=== PATIENT | female | born 1980 | race Caucasian/White ===

== ENCOUNTER → 2017-06-22 | Outpatient (CLI) | payer OTHER ==
[~2017-06-22] MED LIST: GING250C3 PO; PREN-127 PO
[2017-06-22 10:01] LABS: PLATELET COUNT, AUTOMATED 263 K/uL (150-450)
== END ==
LOC: LAB 09:33
PROVIDERS: ATTEND Obstetrics & Gynecology
DX: Z34.91 Encounter for supervision of normal pregnancy, unspecified, first trimester (principal)
CPT/HCPCS: 36415; 85025; 86592; 86703; 86762; 86850; 86900; 86901; 87088; 87340

== ENCOUNTER → 2017-06-26 | Outpatient (CLI) | payer OTHER | LOC: LAB 15:52 | PROVIDERS: ATTEND Obstetrics & Gynecology | DX: Z34.91 Encounter for supervision of normal pregnancy, unspecified, first trimester (principal) | CPT/HCPCS: 87491; 87591 ==

== ENCOUNTER → 2017-07-23 | Outpatient (CLI) | payer OTHER ==
[~2017-07-23] MED LIST changes: +WHEA360P
== END ==
LOC: LAB 17:05
PROVIDERS: ATTEND Obstetrics & Gynecology
DX: Z02.9 Encounter for administrative examinations, unspecified (principal)

== ENCOUNTER → 2017-08-31 | Outpatient (CLI) | payer OTHER ==
--- NOTE | 2017-08-31 14:26 | RADIOLOGY IMAGING REPORT ---
FACILITY: [facility] PATIENT NAME: Sydnie Robert : 1980 MR: [id number] V: [id number] EXAM DATE: ORDERING PHYSICIAN: ENE MCKEON TECHNOLOGIST: Location: [facility] - [place], [place] Patient: Sydnie Robert : 1980 Visit/Account:[id number] Date of Sevice: 08/31/2017 ADDENDUM #1 The patient returned for additional images of the profile since this could not be obtained at t he time of the original examination of August 31, 2017. Images of the profile appeared within no rmal limits Report Dictated By: Apple Martell MD at 09/03/2017 9:29 AM Report E-Signed By: Apple Martell MD at 09/03/2017 9:31 AM ORIGINAL REPORT OB ANATOMICAL SURVEY HISTORY: Supervision, high risk , second trimester, leiomyoma COMPARISON: None. TECHNIQUE: Transabdominal imaging was performed for assessment of the fetus and maternal pelvic s tructures. Transvaginal imaging was not performed. FINDINGS: Intrauterine gestations: One. presentation: Variable. heart rate: 146 bpm. Amniotic fluid volume: Normal; MARA 18.8 cm; MVP 5.88 cm. Placenta: Posterior. Uterus: There is a 3.4 x 2.9 x 2.3 cm posterior mid uterine fibroid. There is a 5.2 x 3.8 x 5.5 cm r ight-sided uterine fibroid. There is a 4.8 x 5.7 x 4.5 cm anterior right-sided uterine fibroid. Maternal adnexa/ovaries: Grossly unremarkable, ovaries not visualized. Cervix: Grossly long and closed. Gestational Parameters: BPD: 4.44 cm, 16 percentile HC: 16.6 cm, 58th percentile AC: 14 cm, 59th percentile FL: 2.98 cm, 50th percentile Average ultrasound age (AUA): 19 weeks/ three days Estimated age based on LMP: 19 weeks/ zero days, 64th percentile Estimated weight (EFW): 285 grams +/- 42 grams Anatomic Survey: Intracranial structures, 4-chamber heart, stomach, kidneys, urinary bladder, spine, 3-vessel cord and cord insertion are unremarkable. Two upper and two lower extremities visualized. IMPRESSION: Three uterine fibroids were demonstrated as detailed above Single viable fetus in variable presentation with an estimated gestational age by measurements of 19 weeks and three days. Estimated weight 285 g +/- 42 g Report Dictated By: Apple Martell MD at 08/31/2017 2:15 PM Report E-Signed By: Apple Martell MD at 08/31/2017 2:22 PM ELIELN:AMICIVN
== END ==
LOC: RAD 08:52
PROVIDERS: ATTEND Obstetrics & Gynecology
DX: Z02.9 Encounter for administrative examinations, unspecified (principal)
CPT/HCPCS: 76811

== ENCOUNTER → 2017-09-03 | Outpatient (CLI) | payer OTHER | LOC: RAD 08:16 | PROVIDERS: ATTEND Obstetrics & Gynecology | DX: Z02.9 Encounter for administrative examinations, unspecified (principal) ==

== ENCOUNTER → 2017-11-06 | Outpatient (CLI) | payer OTHER ==
[~2017-11-06] MED LIST changes: +BLOO1KIT65 MC; +DIPH0.5D12 IM; +FLUC150T40 PO; +MOM PO
[2017-11-06 11:23] LABS: PLATELET COUNT, AUTOMATED 247 K/uL (150-450)
== END ==
LOC: LAB 09:58
PROVIDERS: ATTEND Obstetrics & Gynecology
DX: O09.90 Supervision of high risk pregnancy, unspecified, unspecified trimester (principal); O09.519 Supervision of elderly primigravida, unspecified trimester
CPT/HCPCS: 36415; 82950; 85025

== ENCOUNTER → 2017-11-09 | Outpatient (CLI) | payer OTHER | LOC: LAB 08:00 | PROVIDERS: ATTEND Obstetrics & Gynecology | DX: O09.90 Supervision of high risk pregnancy, unspecified, unspecified trimester (principal); O99.810 Abnormal glucose complicating pregnancy | CPT/HCPCS: 36415; 82951; 82952 ==

== ENCOUNTER → 2017-11-11 | Outpatient (CLI) | payer OTHER ==
[~2017-11-11] VITALS: Ht 172.7 cm; Wt 67.6 kg
--- NOTE | 2017-11-11 11:47 | Medical Nutrition Therapy ---
Nutrition Anthropometrics Height (Inches): 68 (stated) Weight (Pounds): 149 (29th wk PG, 128# pre preg) Alex Nutrition Score: Alex Nutrition Risk Score: Dietary Referral Nutrition Risk Factors: Nutrition Risk Comment: Nutrition/Food History Breakfast: 4 pancake with extra egg, yogurt, fruit, plum preserves Lunch: 1 sl fitness bread, turkey, cheese, spinach salad, oil/vinegar Dinner: chickenbreast , spinach salad Snacks: appple Nutritional Education Nutrition Education Topic: Diabetic Nutrition (gestational) Learning Readiness: Eager, Interested Teaching Methods: Handout, Demonstration Response to Teaching: Verbalize understanding, Reinforcement needed Teaching Recipient: Patient Nutrition Counseling: Pt at 29 wks PG [presented with gestational DM DX. Pt states has been checking BG and has reported 2 incidences of BG 64, one after talking walk last night and again before brft this morning. Reported this to PCP's nurse after session. Reviewed hypogrlycemia symptoms. Pt states did not feel like she had jose symptoms of hypoglycemia. Reviewed rule of 15 for hypoglycemia. Encouraged pt to take 15gm snack with protein prior to physical activity. Reviewed glycemic response and high CHO foods. Provided meal plan of 30gm CHO brft, 45-60gm lunch supper with 15gm snacks tid with protein. Informed pt to call PCP if any BG above 200 or below 70. Pt will f/u next Thu at 10:00 to review food intake and BG readings. Nutrition Monitoring & Eval RD Patient Assessment Time: [address] Assessment Type: RD Education Nutritional Comment: Provided 60 minute diabetes education focusing on nutrition, glucometer use, hypoglycemia. Copies To Copies to: ENE MCKEON MD ; SHERLYN MORA Nov 11, 2017 11:47
== END ==
LOC: DIET 10:07
PROVIDERS: ATTEND Obstetrics & Gynecology
DX: O24.410 Gestational diabetes mellitus in pregnancy, diet controlled (principal)
CPT/HCPCS: G0108 ×2

== ENCOUNTER → 2017-12-03 | Outpatient (CLI) | payer OTHER ==
--- NOTE | 2017-12-03 14:07 | RADIOLOGY IMAGING REPORT ---
FACILITY: [facility] PATIENT NAME: Sydnie Robert : 1980 MR: [id number] V: [id number] EXAM DATE: ORDERING PHYSICIAN: ENE MCKEON TECHNOLOGIST: Location: [facility] - [place] Patient: Sydnie Robert : 1980 Visit/Account:[id number] Date of Sevice: 12/03/2017 [facility] OB LIMITED HISTORY: Growth, history of leiomyoma COMPARISON: OB ultrasound April 02, 2017 TECHNIQUE: Transabdominal imaging was performed for assessment of the fetus and maternal pelvic s tructures. Transvaginal imaging was not performed. FINDINGS: Intrauterine gestations: One. presentation: Cephalic. heart rate: 158 bpm. Amniotic fluid volume: ; MARA 23.6 cm; MVP 8.03 cm. Placenta: Posterior. Uterus: Two of the previously described three uterine fibroids were measured.. One of the right-side d fibroids measures 4.8 x 3.8 x 6.1 cm And one measures 4.4 x 3.3 x 4.7 cm. Fibroids previously chantal ured 5.2 x 3.8 x 5.5 cm and 4.8 x 5.7 x 4.5 cm. The posterior fibroid was not measured The posterior fibroid was not measured. Maternal adnexa/ovaries: Not imaged. Cervix: Grossly long and closed. Gestational Parameters: BPD: 8.3 cm, 71st percentile HC: 30 cm, 34th percentile AC: 28.7 cm, 59th percentile FL: 6.2 cm, 34th percentile Average ultrasound age (AUA): 33 weeks/ zero days Estimated age based on LMP: 33 weeks/ three days, 49th percentile Estimated weight (EFW): 2034 grams +/- 297 grams Anatomic Survey: Anatomic survey was not performed. IMPRESSION: Is a single viable fetus in cephalic presentation with an estimated gestational age by measurements o f 33 weeks and zero days. Estimated weight is 2034 g MARA measured 23.6 cm, MVP 8.03 cm. Of the three previously described leiomyomas to were measured measuring 4.8 x 3.8 x 6.1 cm and 4.4 x 3.3 x 4.7 cm. These previously measured 5.2 x 3.8 x 5.5 cm and 4.8 x 5.7 x 4.5 cm Report Dictated By: Apple Martell MD at 12/03/2017 1:20 PM Report E-Signed By: Apple Martell MD at 12/03/2017 2:04 PM WSN:AMICIVN
== END ==
LOC: RAD 11:29
PROVIDERS: ATTEND Obstetrics & Gynecology
DX: O34.13 Maternal care for benign tumor of corpus uteri, third trimester (principal); Z3A.33 33 weeks gestation of pregnancy

== ENCOUNTER → 2018-01-07 | Outpatient (CLI) | payer OTHER ==
[~2018-01-07] MED LIST changes: +FLU60SYR36 IM
== END ==
LOC: LAB 14:01
PROVIDERS: ATTEND Student in an Organized Health Care Education/Training Program
DX: Z36.85 Encounter for antenatal screening for Streptococcus B (principal)
CPT/HCPCS: 87081

== ENCOUNTER 2018-01-17 13:00 | Inpatient (IN) | payer OTHER ==
[~2018-01-17] VITALS: Ht 165.1 cm; Wt 68.0 kg
[2018-01-23] VITALS (17 sets, daily range): BP systolic 81–119; BP diastolic 34–79; Ht 165.1 cm; Wt 68.0 kg
[2018-01-23] MEDS ORDERED: OXYTOCIN 30 UNIT/D5LR 500 ML 500 ML IV PRN ×3 (02:13→13:32)
[2018-01-23] MEDS ORDERED: FAMOTIDINE(*) 20MG/50ML PREMIX 50 ML IVPB PRN ×2 (02:13→14:46)
[2018-01-23] MEDS ORDERED: LIDOCAINE/SOD BICARB 8.4% SYR SC PRN (02:15)
[2018-01-23] MEDS ORDERED: fentaNYL CITR 100 MCG/2 ML AMP IVP PRN (02:15)
[2018-01-23] MEDS ORDERED: FLUSH 10 ML SYR IVP PRN (02:15)
[2018-01-23] MEDS ORDERED: METOCLOPRAMIDE 10 MG/2 ML SDV IVP PRN ×2 (02:15→14:47)
[2018-01-23] MEDS ORDERED: LIDOCAINE 1% LOCAL 300 MG/30ML INJ PRN (02:15)
[2018-01-23] MEDS ORDERED: ONDANSETRON 4 MG/2 ML VIAL IVP PRN (02:55)
[2018-01-23] MEDS: LR(*) 1000 ML BAG 1,000 ML IV SCH ×2 (03:15→06:40)
[2018-01-23 03:54] LABS: PLATELET COUNT, AUTOMATED 186 K/uL (150-450)
--- NOTE | 2018-01-23 07:38 | History & Physical ---
History of Present Illness Chief Complaint Labor History of Present Illness 37-year-old at 39w5d presents in spontaneous labor. Upon getting admitted she experienced SROM also. She reports strong UCx since midnight. She is breathing well through contractions. PNC by IMG. PNR reviewed. c/b GDMA1, AMA, uterine fibroids. History Patient's Blood Type: B Positive Rubella Status: Immune Group B Strep Screen: Negative Obstetrical History: Hx SAB x 2 in 2017 Past Medical History: PMH: None PSH: [place] teeth Allergies: Coded Allergies: Sulfa (Sulfonamide Antibiotics) (Unverified Allergy, Mild, 06/18/17) HAIR LOSS Social History: No T/E/D. . Family History: FH: cancer Paternal great aunt Paternal great aunt FH: colon cancer PATERNAL GRANDFATHER FH: dementia MATERNAL GRANDMOTHER FH: stroke MATERNAL GRANDFATHER PATERNAL GRANDMOTHER High cholesterol FATHER Med Rec Home Meds Active Scripts Blood-Glucose Meter (BLOOD GLUCOSE MONITORING) 1 Each Kit, EACH MC, #1 Blood sugars should be checked fasting and 2 hours postprandial daily Prov:ENE MCKEON MD 11/09/17 Reported Medications Vits W-Ca,Fe,Fa(<1MG) ( VITAMINS) 1 Each Tablet, 1 EACH PO DAILY, TAB 06/22/17 Review of Systems Constitutional: No Fever Neurological: No Syncope Eyes: No Vision Change Cardiovascular: No Chest Pain Respiratory: No Shortness of Breath, No Cough Gastrointestinal: No Nausea; Vomiting; No Diarrhea Genitourinary: No Dysuria Musculoskeletal: No Pain Psychiatric: No Depression, No Anxiety Exam General Exam Vital Signs Vital Signs Date Time Temp Pulse Resp B/P (MAP) Pulse Ox O2 Delivery O2 Flow Rate FiO2 01/23/18 03:23 98.2 93 16 119/79 (92) 98 Room Air General Apperance: Alert/Awake/No Acute Distress Neuro: No Gross deficits Eyes: Normal Extraocular Movement & Vison Cardiovascular: Regular Rate and Rhythm Respiratory: No Respiratory Distress, Clear to Auscultation Abdomen: Gravid - Non-Tender : Normal Musculoskeletal: No Weakness/Pain Extremities: No Cyanosis,Clubbing or Edema Integumentary: Skin Intact without Lesions or Rash Psychological: Alert & Oriented X3, Appropriate Mood & Affect Vaginal Discharge/Fluid?: Clear Fluid Cervical Dialation: 7 Cervical Effacement (%): 80 Cervical Consistency: Soft Cervical Position: Mid Station: -1 Presentation: Vertex Uterine Contractions(Q min): 3 Uterine Contraction Strength: Strong UC Resting Tone: Soft Fetus FHT Category: I Medical Decision Making Data Points Result Diagram: 01/23/18 0349 Pre-Admit Course Medical Record Review: Yes VTE Prophylasis: Adult Deep Vein Thrombosis/Pulmonary: No Pharmacological Contraindicati: Pt at Low Risk for VTE Mechanical Contraindications: Pt at Low Risk for VTE Assessment and Plan Problems: (1) 39 weeks gestation of Assessment & Plan: 37yo at 39w5d presents in spontaneous active labor. She has progressed from 4 to 7cm. She has a forebag, which will AROM once she is gets some nutrition in. Anticipate . (2) Gestational diabetes mellitus (GDM) Assessment & Plan: Admission accucheck was 101. Her blood sugars are extremely well controlled. (3) AMA (advanced maternal age) primigravida 35+ Assessment & Plan: Declined genetic screening, ultrasound was reassuring. (4) Uterine fibroids affecting Problem Qualifiers (1) Gestational diabetes mellitus (GDM): Gestational diabetes mellitus control: diet-controlled Trimester: third trimester Qualified Codes: O24.410 - Gestational diabetes mellitus in , diet controlled (2) AMA (advanced maternal age) primigravida 35+: Trimester: third trimester Qualified Codes: O09.513 - Supervision of elderly primigravida, third trimester (3) Uterine fibroids affecting : Trimester: third trimester Qualified Codes: O34.13 - Maternal care for benign tumor of corpus uteri, third trimester; D25.9 - Leiomyoma of uterus, unspecified ENE MCKEON MD Jan 23, 2018 07:38
--- NOTE | 2018-01-23 12:13 | Labor Progress Note ---
Labor Subjective Progress Notes Subjective Pt is feeling some pressure, but generally doing very well with managing pain of contractions. Labor Objective Vital Signs Vital Signs Date Time Temp Pulse Resp B/P (MAP) Pulse Ox O2 Delivery O2 Flow Rate FiO2 01/23/18 03:23 98.2 93 16 119/79 (92) 98 Room Air Vaginal Discharge/Fluid?: Clear Fluid Cervical Dialation: 9 Cervical Effacement (%): 100 Cervical Consistency: Soft Cervical Position: Mid Station: 0 Presentation: Vertex Uterine Contractions(Q min): 4 Uterine Contraction Strength: Strong UC Resting Tone: Soft Fetus Heart Tone Variabilty: Moderate FHT Accelerations: 15X15 FHT Decelerations: Variable FHT Category: I General Exam General Appearance: Alert/Awake/No Acute Distress Abdomen: Gravid - Non-Tender Musculoskeletal: No Weakness/Pain Extremities: No Cyanosis,Clubbing or Edema Integumentary: Skin Intact without Lesions or Rash Psychological: Alert & Oriented X3, Appropriate Mood & Affect Other Result Diagram: 01/23/18 0349 Assessment and Plan Problems: (1) 39 weeks gestation of Assessment & Plan: AROM of forebag. Anticipate . (2) Gestational diabetes mellitus (GDM) Assessment & Plan: Admission accucheck was 101. Her blood sugars are extremely well controlled. (3) AMA (advanced maternal age) primigravida 35+ Assessment & Plan: Declined genetic screening, ultrasound was reassuring. (4) Uterine fibroids affecting Problem Qualifiers (1) Gestational diabetes mellitus (GDM): Gestational diabetes mellitus control: diet-controlled Trimester: third trimester Qualified Codes: O24.410 - Gestational diabetes mellitus in , diet controlled (2) AMA (advanced maternal age) primigravida 35+: Trimester: third trimester Qualified Codes: O09.513 - Supervision of elderly primigravida, third trimester (3) Uterine fibroids affecting : Trimester: third trimester Qualified Codes: O34.13 - Maternal care for benign tumor of corpus uteri, third trimester; D25.9 - Leiomyoma of uterus, unspecified ENE MCKEON MD Jan 23, 2018 12:13
[2018-01-23] MEDS ORDERED: NS(*) 0.9% 1000 ML BAG 1,000 ML ONE ×2 (13:23→14:01)
--- NOTE | 2018-01-23 13:30 | Labor Progress Note ---
Labor Subjective Progress Notes Subjective Pt is still feeling contractions but they seem less intense over the past hour. Labor Objective Vital Signs Vital Signs Date Time Temp Pulse Resp B/P (MAP) Pulse Ox O2 Delivery O2 Flow Rate FiO2 01/23/18 03:23 98.2 93 16 119/79 (92) 98 Room Air Vaginal Discharge/Fluid?: Clear Fluid Cervical Dialation: 9 Cervical Effacement (%): 100 Cervical Consistency: Soft Cervical Position: Mid Station: 0 Presentation: Vertex Uterine Contractions(Q min): 3 Uterine Contraction Strength: Moderate UC Resting Tone: Soft Fetus Heart Tone Variabilty: Moderate FHT Decelerations: Variable FHT Category: II General Exam General Appearance: Alert/Awake/No Acute Distress Abdomen: Gravid - Non-Tender Psychological: Alert & Oriented X3, Appropriate Mood & Affect Other Result Diagram: 01/23/18 0349 Assessment and Plan Problems: (1) 39 weeks gestation of Assessment & Plan: Amnioinfusion started. First UCx was not very strong based on MVU. Will initiate pitocin also. (2) Gestational diabetes mellitus (GDM) Assessment & Plan: Admission accucheck was 101. Her blood sugars are extremely well controlled. (3) AMA (advanced maternal age) primigravida 35+ Assessment & Plan: Declined genetic screening, ultrasound was reassuring. (4) Uterine fibroids affecting Problem Qualifiers (1) Gestational diabetes mellitus (GDM): Gestational diabetes mellitus control: diet-controlled Trimester: third trimester Qualified Codes: O24.410 - Gestational diabetes mellitus in , diet controlled (2) AMA (advanced maternal age) primigravida 35+: Trimester: third trimester Qualified Codes: O09.513 - Supervision of elderly primigravida, third trimester (3) Uterine fibroids affecting : Trimester: third trimester Qualified Codes: O34.13 - Maternal care for benign tumor of corpus uteri, third trimester; D25.9 - Leiomyoma of uterus, unspecified ENE MCKEON MD Jan 23, 2018 13:30
[2018-01-23] MEDS ORDERED: MORPHINE PF 5 MG/10 ML AMP ONE (14:30)
[2018-01-23] MEDS ORDERED: ONDANSETRON 4 MG/2 ML VIAL ONE (14:30)
[2018-01-23] MEDS ORDERED: OXYTOCIN 10 UNIT/ML SDV ONE (14:30)
[2018-01-23] MEDS ORDERED: fentaNYL CITR 100 MCG/2 ML AMP ONE (14:30)
--- NOTE | 2018-01-23 14:49 | Labor Progress Note ---
Labor Subjective Progress Notes Subjective Pt is feeling very tired. Labor Objective Vital Signs Vital Signs Date Time Temp Pulse Resp B/P (MAP) Pulse Ox O2 Delivery O2 Flow Rate FiO2 01/23/18 03:23 98.2 93 16 119/79 (92) 98 Room Air Vaginal Discharge/Fluid?: Clear Fluid Cervical Dialation: 9 Cervical Effacement (%): 100 Cervical Consistency: Soft Cervical Position: Mid Station: 0 Presentation: Vertex Uterine Contractions(Q min): 3 Uterine Contraction Strength: Strong UC Resting Tone: Soft Fetus Heart Tone Variabilty: Moderate FHT Decelerations: Variable FHT Category: II General Exam General Appearance: Alert/Awake/No Acute Distress Abdomen: Soft, Non-Tender, Non-Distended, Gravid - Non-Tender : Normal Musculoskeletal: No Weakness/Pain Extremities: No Cyanosis,Clubbing or Edema Integumentary: Skin Intact without Lesions or Rash Psychological: Alert & Oriented X3, Appropriate Mood & Affect Other Result Diagram: 01/23/18 0349 Assessment and Plan Problems: (1) 39 weeks gestation of Assessment & Plan: Pt has now been 9cm for 4 1/2 hours. She experienced AROM of forebag without descent of vertex. Then, pitocin was started at 1330 with amnioinfusion. No descent of the head has been noted. There are recurrent deep variable decelerations with each contraction and most recently they were more in late timing. I suspect there is CPD. One dose of terbutaline was given for baby to recover and to discuss plan of care with the patient. I have recommended for arrest of descent and nonreassuring status. After discussing the R/B/A, the patient and her are amenable with proceeding to the OR. Will plan preoperative Ancef. (2) Gestational diabetes mellitus (GDM) Assessment & Plan: Admission accucheck was 101. Her blood sugars are extremely well controlled. (3) AMA (advanced maternal age) primigravida 35+ Assessment & Plan: Declined genetic screening, ultrasound was reassuring. (4) Uterine fibroids affecting Problem Qualifiers (1) Gestational diabetes mellitus (GDM): Gestational diabetes mellitus control: diet-controlled Trimester: third trimester Qualified Codes: O24.410 - Gestational diabetes mellitus in , diet controlled (2) AMA (advanced maternal age) primigravida 35+: Trimester: third trimester Qualified Codes: O09.513 - Supervision of elderly primigravida, third trimester (3) Uterine fibroids affecting : Trimester: third trimester Qualified Codes: O34.13 - Maternal care for benign tumor of corpus uteri, third trimester; D25.9 - Leiomyoma of uterus, unspecified ENE MCKEON MD Jan 23, 2018 14:49
[2018-01-23] MEDS ORDERED: ceFAZolin(*) 2GM/D5W 50ML 50 ML IVPB PRN (14:52)
[2018-01-23] MEDS ORDERED: PHENYLEPHRINE/NS/PF 0.4MG/10ML ONE (15:18)
[2018-01-23] MEDS ORDERED: PROMETHAZINE 25 MG/ML 1 ML AMP IVP PRN (16:10)
[2018-01-23] MEDS ORDERED: ACETAMINOPHEN 325 MG TAB PO PRN (16:10)
[2018-01-23] MEDS ORDERED: MAGNESIUM HYDROXIDE* 30ML UDCP PO PRN (16:10)
[2018-01-23] MEDS ORDERED: LANOLIN OINT 7 GM TUBE TP PRN (16:10)
[2018-01-23] MEDS ORDERED: OXYTOCIN 30 UNIT/LR 500 ML 500 ML IV PRN (16:10)
[2018-01-23] MEDS ORDERED: ONDANSETRON 4 MG/2 ML VIAL IV PRN (16:10)
[2018-01-23] MEDS ORDERED: SIMETHICONE 80 MG CHEW CHEW PRN (16:10)
--- NOTE | 2018-01-23 16:10 | Post Operative Note ---
Operative Note - [facility] [employer]IST Operative Day Date: Jan 23, 2018 Physicians Surgeon: Lani Anesthesia: Spinal, Keshia Corley Diagnosis Pre-Op Diagnosis: IUP at 39w5d in labor Arrest of descent, suspect CPD Recurrent decelerations Post-Op Diagnosis: Same OP position Viable male 1529hrs, 3098g, Apgars 8/9 Uterine fibroids Procedure Findings: Left lateral pedunculated myomata: [id number] and [id number] Posterior intramural myoma: [id number] Procedure(s): PLTCD Fluids Fluids: UOP: 300cc Estimated Blood Loss: 600cc ENE MCKEON MD Jan 23, 2018 16:07
[2018-01-23] MEDS ORDERED: IBUP800T37 PO (16:21)
[2018-01-23] MEDS ORDERED: OXYC-865 PO (16:21)
--- NOTE | 2018-01-23 16:29 | Anesthesia OB Pre-Anes Eval ---
History of Present Illness Anesthesia Start Date: Jan 23, 2018 Anesthesia Start Time: 15:07 OB Anesthesia Diagnosis: spontaneous labor Current Complication: diabetes EDC: Jan 25, 2018 : 3 Para: 0 Vital Signs: Vital Signs 01/23/18 01/23/18 16:09 16:18 Temp 98.2 Pulse 134 Resp 16 B/P (MAP) 112/66 (81) Pulse Ox 97 O2 Delivery Nasal Cannula O2 Flow Rate 2.0 Pain Ratin Heart Tones: 133 Result Diagram: 01/23/18 0349 Height (Inches): 65.00 Weight (Pounds): 150 BMI Calculated: 24.96 Past Medical History Medical History: diabetes Surgical History: other (wisdom teeth) Previous Anesthesia: general Attended Childbirth Classes?: Yes Hx Anesthesia Reactions: No Hx Family Anesthesia Reaction: No Home Meds Active Scripts Oxycodone Hcl/Acetaminophen (PERCOCET 5-325 MG TABLET) 1 Each Tablet, 1 TAB PO Q4-6H PRN for pain, #20 TAB 0 Refills Prov:ENE MCKEON MD 01/23/18 Blood-Glucose Meter (BLOOD GLUCOSE MONITORING) 1 Each Kit, EACH MC, #1 Blood sugars should be checked fasting and 2 hours postprandial daily Prov:ENE MCKEON MD 11/09/17 Reported Medications Vits W-Ca,Fe,Fa(<1MG) ( VITAMINS) 1 Each Tablet, 1 EACH PO DAILY, TAB 06/22/17 Allergies: Coded Allergies: Sulfa (Sulfonamide Antibiotics) (Unverified Allergy, Mild, 06/18/17) HAIR LOSS Anesthesia OB ROS Neurological: No migraines/headaches, No seizures, No neuropathy, No other ENT: Denies Tooth caps, Denies Loose teeth, Denies Chipped teeth, Denies Dentures, Denies Bridges, Denies Retainers, Denies Veneers, Denies Implants, Denies Tongue ring, Denies Other Pulmonary: No asthma, No smoker (pks/day/yrs), No other Airway Class: ll Cardiovascular ROS: No edema, No arrhythmia, No other Last Solids Date: Jan 23, 2018 Last Solids Time: 12:00 ROS: No Herpes, No STD(s), No Liver Disease, No Renal Disease, No Other Endocrine ROS: gestational diabetes Musculoskeletal ROS: No low back pain, No low back injury, No scoliosis, No other ASA Classification: 2 Assessment and Plan Anesthesia Plan: SAB Assessment: Progressed to 9 cm but having decels. To OR for C/S Anesthesia Stop Day: Jan 23, 2018 Anesthesia Stop Time: 16:15 SHERLYN GARRIDO CRNA Jan 23, 2018 16:29
[2018-01-23] MEDS ORDERED: diphenhydrAMINE 25 MG CAP PO PRN (16:30)
[2018-01-23] MEDS ORDERED: NALBUPHINE HCL 10 MG/ML AMP IVP PRN (16:30)
[2018-01-23] MEDS: DLR(*) 1000 ML BAG 1,000 ML IV PRN (18:11)
[2018-01-23] MEDS ORDERED: TERBUTALINE SULF 1 MG/ML VIAL ONE (18:39)
[2018-01-23] MEDS: FAMOTIDINE 20 MG TAB PO SCH (21:14)
[2018-01-23] MEDS: DOCUSATE CALCIUM 240 MG CAP PO SCH (21:14)
[2018-01-23] MEDS: KETOROLAC 30 MG/ML VIAL IVP SCH (21:15)
--- NOTE | 2018-01-23 23:04 | OPERATIVE REPORT 1 ---
EVENT DATE: January 23, 2018 SURGEON: Justine Garibay MD ANESTHESIA: Spinal by Keshia Corley CRNA PREOPERATIVE DIAGNOSES 1. Intrauterine at 39 weeks five days, presenting in spontaneous labor with arrest of descent at 9 cm with cephalopelvic disproportion. 2. Recurrent decelerations. POSTOPERATIVE DIAGNOSES 1. Intrauterine at 39 weeks five days, presenting in spontaneous labor with arrest of descent at 9 cm with cephalopelvic disproportion. 2. Recurrent decelerations. 3. Persistent occiput posterior position. 4. Delivery of a viable male at 1529 hours weighing 3098 g with Apgars of 8 at one minute and 9 at five minutes. 5. Uterine fibroids as below. FINDINGS 1. Left lateral pedunculated myomata measuring 5 x 5 x 6 cm and 4 x 4 x 4 cm. 2. Posterior intramural myoma measuring 4 x 4 x 5 cm. PROCEDURE PERFORMED Primary low transverse delivery. INTRAVENOUS FLUIDS 750 mL URINE OUTPUT 300 mL ESTIMATED BLOOD LOSS 600 mL INDICATIONS FOR PROCEDURE This patient is a 37-year-old, 3, para 0-0-2-0, who presented at 39 weeks five days in spontaneous labor. Upon admission, she was noted to be 4 cm dilated, 80% effaced, and -1 station. She experienced spontaneous rupture of membranes with return of clear fluid. She then was able to labor and was noted to get to 9 cm at 1020 hours. She then was allowed to continue on her own and was managing the pain well without any anesthesia. She then developed a forebag which was ruptured three hours later, at which time she was still 9 cm. Shortly thereafter, she developed recurrent variable decelerations with each contraction. An amnioinfusion was then started along with Pitocin to augment contractions. After two hours of this, she continued to have recurrent decelerations, and there was no descent of the vertex. She, therefore, was consented for a primary delivery for arrest of descent assuming cephalopelvic disproportion. DESCRIPTION OF PROCEDURE The patient was properly identified and taken to the operating room. She was administered spinal anesthetic and then placed in the supine position with a leftward tilt. A Martinez catheter was then placed, and the abdomen was prepped and draped in the usual fashion for lower abdominal surgery. After adequate anesthesia was confirmed, a Pfannenstiel incision was made over the lower abdomen and carried down to the level of the rectus fascia. The fascia was then nicked in the midline, and the incision was extended bilaterally in a blunt fashion. The peritoneum was then entered, and the incision was again extended to accommodate delivery of the . A bladder blade was then placed, and the vesicouterine peritoneum was reflected off the lower uterine segment. The bladder blade was then replaced. A low transverse incision was made on the uterus revealing ruptured membranes and direct OP presentation. The 's face was visualized well upon entrance into the uterus. The vertex was then able to be delivered through the uterine incision without difficulty, at which time a double nuchal cord was noted and relieved around the . The anterior shoulder delivered, followed by the posterior shoulder, and the remainder of the infant was easily delivered. The had spontaneous cry and spontaneous movement of all four extremities. The oropharynx and nasopharynx were bulb suctioned. The was dried and stimulated. The cord was clamped times two and cut. The infant was then passed to nursing personnel in good condition. Cord blood was then obtained and passed off the table. The placenta was delivered manually without complications and sent off the table. The uterus was cleared of any remaining clots and debris. The uterus was not exteriorized as there were multiple large myomata noted as described above. The uterine incision was then reapproximated using an 0 Vicryl in a running locking fashion, followed by a second imbricating layer of 0 Monocryl. Once this was completed, examination of the uterine incision revealed hemostasis. The pericolic gutters were cleared of clots and debris. The uterine incision was again inspected and noted to be hemostatic. The peritoneum was then reapproximated using a 3-0 Monocryl, followed by reapproximation of the rectus muscle in the midline. Copious irrigation of the muscle was performed, followed by hemostasis with electrocautery. The rectus fascia was then reapproximated using an 0 Vicryl working from apex to the next in a running nonlocking fashion. The subcutaneous tissue was then copiously irrigated and made hemostatic with electrocautery. The subcutaneous tissue was reapproximated with a 3-0 Monocryl, followed by closure of the skin with INSORB niki. All sponge, instrument, and needle counts were correct at the end of this procedure. The patient tolerated this procedure well and recovered in Labor and Delivery with her infant. [place]ONT
[2018-01-24] MEDS: DLR(*) 1000 ML BAG 1,000 ML IV PRN (01:04)
[2018-01-24] MEDS ORDERED: LR(*) 1000 ML BAG 1,000 ML ONE (01:06)
[2018-01-24 03:36] VITALS: BP 99/74
[2018-01-24] MEDS: KETOROLAC 30 MG/ML VIAL IVP SCH ×2 (04:37→10:12)
[2018-01-24 06:27] LABS: PLATELET COUNT, AUTOMATED 164 K/uL (150-450)
[2018-01-24 08:30] VITALS: BP 102/66
[2018-01-24] MEDS ORDERED: INFLUENZA VIRUS VAC 0.5ML SYR IM ONLY ONE (09:00)
[2018-01-24] MEDS ORDERED: DIPHTH/TETANUS/ACEL. PERTUSSIS IM ONLY ONE (09:00)
[2018-01-24] MEDS ORDERED: MEASLES,MUMP,RUBELLA VAC 0.5ML SUBQ ONE (09:00)
[2018-01-24] MEDS: DOCUSATE CALCIUM 240 MG CAP PO SCH ×2 (10:12→20:30)
[2018-01-24] MEDS: FAMOTIDINE 20 MG TAB PO SCH ×2 (10:13→20:30)
[2018-01-24 12:30] VITALS: BP 100/64
--- NOTE | 2018-01-24 14:02 | Anesthesia Post Eval Note ---
Anesthesia Post Eval Note Vital Signs 01/23/18 01/24/18 23:20 03:36 Temp 98.0 Pulse 94 Resp 16 B/P (MAP) 99/74 (82) Pulse Ox 93 O2 Delivery Room Air O2 Flow Rate 1.0 Pt able to participate in Eval: Yes Cardiovascular Status: Satisfactory Respiratory Status: Satisfactory Pain Managment: Satisfactory PO Nausea/Vomiting: Satisfactory Temperature Management: Satisfactory Mental Status: Satisfactory, Alert, Oriented X3 Post-Op Hydration Status: Satisfactory, Tolerating PO Well, Voiding w/o Difficulty Anesthesia Type: SHERLYN RODRIGUEZ CRNA Jan 24, 2018 14:02
--- NOTE | 2018-01-24 14:07 | OB/GYN Progress Note ---
OB Subjective Progress Notes Subjective Pt is feeling well. She has no pain. She has been out of bed, but has not yet voided. She has normal lochia. No chest pain, shortness of breath or dizziness. OB Objective Physical Exam Vital Signs Date Time Temp Pulse Resp B/P (MAP) Pulse Ox O2 Delivery O2 Flow Rate FiO2 01/24/18 03:36 98.0 94 16 99/74 (82) 93 Room Air 01/23/18 23:20 1.0 Intake and Output 01/24/18 07:00 Intake Total 5777 ml Output Total 650 ml Balance 5127 ml IV Total 5777 ml Output Urine Total 650 ml General Appearance: Alert/Awake/No Acute Distress Neurological: No Gross deficits Eyes: Normal Extraocular Movement & Vison Cardiovascular: Normal Rhythm & Peripheral Pulses, Regular Rate and Rhythm Respiratory: No Respiratory Distress, Clear to Auscultation Abdomen: Soft, Non-Tender, Non-Distended, Fundus Firm Incision: Clean, Dry, Intact Musculoskeletal: No Weakness/Pain Extremities: No Cyanosis,Clubbing or Edema Integumentary: Skin Intact without Lesions or Rash Psychological: Alert & Oriented X3, Appropriate Mood & Affect Result Diagram: 01/24/18 0619 Assessment and Plan Problems: (1) examination following delivery Assessment & Plan: POD#1 s/p PLTCD. Routine orders. (2) Gestational diabetes mellitus (GDM) Assessment & Plan: Will plan 2hr GTT . (3) Uterine fibroids affecting Problem Qualifiers (1) Gestational diabetes mellitus (GDM): Gestational diabetes mellitus control: diet-controlled Trimester: third trimester Qualified Codes: O24.410 - Gestational diabetes mellitus in , diet controlled (2) Uterine fibroids affecting : Trimester: third trimester Qualified Codes: O34.13 - Maternal care for benign tumor of corpus uteri, third trimester; D25.9 - Leiomyoma of uterus, unspecified ENE MCKEON MD Jan 24, 2018 14:07
[2018-01-24] MEDS: IBUPROFEN 800 MG TAB PO SCH ×2 (16:04→23:33)
[2018-01-24 23:30] VITALS: BP 114/68
[2018-01-25 03:30] VITALS: BP 125/72
--- NOTE | 2018-01-25 06:05 | OB/GYN Discharge Summary ---
Discharge Summary Reason for Hosp/Final Diag: (1) examination following delivery Hospital Course & Plan: POD#2 s/p PLTCD. Meeting milestones. Desires discharge to home today. Discussed routine expectations. Questions answered. Follow up in clinic in 7-10 days for check. (2) Gestational diabetes mellitus (GDM) Hospital Course & Plan: Will plan 2hr GTT . (3) Uterine fibroids affecting Lates Vital Signs Vital Signs Date Time Temp Pulse Resp B/P (MAP) Pulse Ox O2 Delivery O2 Flow Rate FiO2 01/25/18 03:30 97.8 94 16 125/72 (89) Room Air 01/24/18 12:30 93 01/23/18 23:20 1.0 Weight (Pounds): 150 Result Diagram: 01/24/18618 Condition: Improved Discharge: Home, Self [facility] Meds Active Scripts Oxycodone Hcl/Acetaminophen (PERCOCET 5-325 MG TABLET) 1 Each Tablet, 1 TAB PO Q4-6H PRN for pain, #20 TAB 0 Refills Prov:ENE MCKEON MD 01/23/18 Blood-Glucose Meter (BLOOD GLUCOSE MONITORING) 1 Each Kit, EACH MC, #1 Blood sugars should be checked fasting and 2 hours postprandial daily Prov:ENE MCKEON MD 11/09/17 Reported Medications Vits W-Ca,Fe,Fa(<1MG) ( VITAMINS) 1 Each Tablet, 1 EACH PO DAILY, TAB 06/22/17 Follow up 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 @ [facility] [place] with ENE MCKEON MD Discharge Diet: As Tolerates Discharge Activity: No Heavy Lifting > 10lb, Pelvic Rest Problem Qualifiers (1) Gestational diabetes mellitus (GDM): Gestational diabetes mellitus control: diet-controlled Trimester: third trimester Qualified Codes: O24.410 - Gestational diabetes mellitus in , diet controlled (2) Uterine fibroids affecting : Trimester: third trimester Qualified Codes: O34.13 - Maternal care for benign tumor of corpus uteri, third trimester; D25.9 - Leiomyoma of uterus, unspecified ENE MCKEON MD Jan 25, 2018 06:05
--- NOTE | 2018-01-25 06:05 | OB/GYN Progress Note ---
OB Subjective Progress Notes Subjective Doing well. Pain controlled with oral medications. Tolerating regular diet. Ambulating. Voiding. Normal lochia. No preeclampsia symptoms. OB Objective Physical Exam Vital Signs Date Time Temp Pulse Resp B/P (MAP) Pulse Ox O2 Delivery O2 Flow Rate FiO2 01/25/18 03:30 97.8 94 16 125/72 (89) Room Air 01/24/18 12:30 93 01/23/18 23:20 1.0 Intake and Output 01/25/18 07:00 Intake Total 236 ml Output Total 2400 ml Balance -2164 ml Intake Oral 236 ml Output Urine Total 2400 ml # Voids 7 General Appearance: Alert/Awake/No Acute Distress Neurological: No Gross deficits Eyes: Normal Extraocular Movement & Vison Cardiovascular: Normal Rhythm & Peripheral Pulses, Regular Rate and Rhythm Respiratory: No Respiratory Distress, Clear to Auscultation Abdomen: Soft, Non-Tender, Non-Distended, Fundus Firm Incision: Clean, Dry, Intact Musculoskeletal: No Weakness/Pain Extremities: No Cyanosis,Clubbing or Edema Integumentary: Skin Intact without Lesions or Rash Psychological: Alert & Oriented X3, Appropriate Mood & Affect Result Diagram: 01/24/18 0619 Assessment and Plan Problems: (1) examination following delivery Assessment & Plan: POD#2 s/p PLTCD. Meeting milestones. Desires discharge to home today. Discussed routine expectations. Questions answered. Follow up in clinic in 7-10 days for check. (2) Gestational diabetes mellitus (GDM) Assessment & Plan: Will plan 2hr GTT . (3) Uterine fibroids affecting Problem Qualifiers (1) Gestational diabetes mellitus (GDM): Gestational diabetes mellitus control: diet-controlled Trimester: third t rimester Qualified Codes: O24.410 - Gestational diabetes mellitus in pregnanc y, diet controlled (2) Uterine fibroids affecting : Trimester: third trimester Qualified Codes: O34.13 - Maternal care for benign tumor of corpus uteri, third trimester; D25.9 - Leiomyoma of uterus, unspecified ENE MCKEON MD Jan 25, 2018 06:05
[2018-01-25] MEDS: FAMOTIDINE 20 MG TAB PO SCH (07:59)
[2018-01-25] MEDS: IBUPROFEN 800 MG TAB PO SCH (07:59)
[2018-01-25] MEDS: DOCUSATE CALCIUM 240 MG CAP PO SCH (07:59)
[2018-01-25 09:00] VITALS: BP 120/77
== END 2018-01-25 14:05 | disposition home or self-care (01) | DRG 788 ==
LOC: OB 01-23 02:01
PROVIDERS: ADMIT Obstetrics & Gynecology; ATTEND Obstetrics & Gynecology
PROC: 10907ZC Drainage of Amniotic Fluid, Therapeutic from Products of Conception, Via Natural or Artificial Opening (ICD-10-PCS; 2018-01-23)
PROC: 3E0E7KZ Introduction of Other Diagnostic Substance into Products of Conception, Via Natural or Artificial Opening (ICD-10-PCS; 2018-01-23)
PROC: 10D00Z1 Extraction of Products of Conception, Low, Open Approach (ICD-10-PCS; principal; 2018-01-23 15:00)
DX: O24.420 Gestational diabetes mellitus in childbirth, diet controlled (principal); O34.13 Maternal care for benign tumor of corpus uteri, third trimester; O76 Abnormality in fetal heart rate and rhythm complicating labor and delivery; O65.9 Obstructed labor due to maternal pelvic abnormality, unspecified; O64.0XX0 Obstructed labor due to incomplete rotation of fetal head, not applicable or unspecified; O69.81X0 Labor and delivery complicated by cord around neck, without compression, not applicable or unspecified; D25.1 Intramural leiomyoma of uterus; Z3A.39 39 weeks gestation of pregnancy; Z37.0 Single live birth
CPT/HCPCS: 36415; 36416; 82948; 84112; 85025; 86850; 86900; 86901; J0690; J1885; J2270; J2370; J2405; J2590; J2765; J3010; J3105; J3490; J7030; J7120; Q0163